=== PATIENT | male | born 1970 | race Two or more races ===

== ENCOUNTER 2023-09-09 03:00 | Emergency (ER) | payer OTHER, SELFPAY ==
[2023-09-09 03:13] VITALS: BP 131/84; PULSE 63; RESP 16; TEMP 36.3; O2SAT 97; BMI 26.6
--- NOTE | 2023-09-09 03:41 | ED.GENADULT ---
HPI - General Adult General Chief complaint: Anxiety Stated complaint: sore throat Time Seen by Provider: 09/09/23 03:17 History of Present Illness HPI narrative: patient reports hx of anxiety when sleeping veronica felt that his throat was closing/ difficult to breath while lying in bed. felt very anxious due. has had a sore throat since yesterday morning. denies sick contacts. feels very anxious also reports chest pain in L side, does not radiate. denies nausea or other symptoms. patient has a difficult time verbalizing exact complaint but states he feels very anxious, like something is very wrong. 53-year-old man presenting to the emergency department with concern of tight throat. Veronica especially felt like his throat was closing up he was trying to go to sleep. I finally ask what his primary concern is and it sounds like he is worried about having a heart attack. Is describing prickling sensation at the left chest. I tried to clarify what sounds to be a case of mild laryngitis. He says he sounded like this since he got COVID but later states that this is new. Takes gabapentin with whatever meal he eats 100 mg sounds like up to 3 doses per day. This is for anxiety he says. Does not think it is COVID. Related Data Home Medications Medication Instructions Recorded Confirmed gabapentin 100 mg capsule 100 mg PO 3XD 09/09/23 09/09/23 Previous Rx's Medication Instructions Recorded lorazepam 1 mg tablet 0.5 - 1 mg (0.5 - 1 x 1 mg) PO BID 09/09/23 PRN anxiety #6 tabs prednisone 20 mg tablet 40 mg (2 x 20 mg) PO DAILY 5 days 09/09/23 #10 tabs Allergies Allergy/AdvReac Type Severity Reaction Status Date / Time No Known Drug Allergies Allergy Verified 09/09/23 03:27 Review of Systems Status of ROS: Reports: 6 or more systems reviewed and unremarkable except as noted in History and below PFSH PFSH Social History Smoking Status: Never smoker Do you use any of these nicotine containing products: None Second hand tobacco smoke exposure: No Non-prescribed substance use: denies use service: No Exam Narrative: Exam Narrative: Very pleasant. NAD other than demonstrating some degree of anxiety. Regularly rubbing/worrying left chest. Breathing easily. Oropharynx is a little sticky but otherwise unremarkable; faintly erythematous perhaps in the far posterior oropharynx. Sounds a little laryngitic. No asymmetry. Trachea midline. No supraclavicular crepitus. Extremities are well perfused without edema. Const: Vital Signs, click to edit/add: Vital Signs - 24 hr 09/09/23 03:13 Temperature 97.3 F L Pulse Rate [Left P ulse Oximeter] 63 Respiratory Rate 16 Blood Pressure [Le ft Upper Arm] 131/84 Pulse Oximetry 97 Oxygen Delivery Me thod Room Air Documenting provider has reviewed patient's vital signs: yes Course Vital Signs Vital signs: Initial Vital Signs Temperature 97.3 F L 09/09/23 03:13 Temperature Source Temporal Artery Scan 09/09/23 03:13 Pulse Rate 63 09/09/23 03:13 Respiratory Rate 16 09/09/23 03:13 Blood Pressure 131/84 09/09/23 03:13 Blood Pressure Mean 99 09/09/23 03:13 Blood Pressure Position Supine 09/09/23 03:13 Pulse Oximetry 97 09/09/23 03:13 Oxygen Delivery Method Room Air 09/09/23 03:13 Vital Signs Temperature 97.3 F L 09/09/23 03:13 Pulse Rate 63 09/09/23 03:13 Respiratory Rate 16 09/09/23 03:13 Blood Pressure 131/84 09/09/23 03:13 Pulse Oximetry 97 09/09/23 03:13 Oxygen Delivery Method Room Air 09/09/23 03:13 Temperature 97.3 F L 09/09/23 03:13 Pulse Rate 63 09/09/23 03:13 Respiratory Rate 16 09/09/23 03:13 Blood Pressure 131/84 09/09/23 03:13 Pulse Oximetry 97 09/09/23 03:13 Oxygen Delivery Method Room Air 09/09/23 03:13 Medical Decision Making MDM Narrative Medical decision making narrative: Had a 20 second run of sinus tachycardia. Approximately 114 beats per minute. Did not report to be symptomatic at that time but did say that he continued to feel a prickling sensation in his left chest. As I am conversing with him there are no events on monitor. Differential would also include pulmonary embolus, chest wall pain, pneumothorax, tachy arrhythmia or ischemic cardiovascular event. May have experienced some laryngospasm but no evidence of that here beyond the mild laryngitis that remains. May be having some reflux. Reviewing again seems that primary concern is sore throat. Per his preference this is where we will focus analysis and check troponin. Labs are normal. No further events. See patient discharge plan Lab Data Lab results reviewed: Yes I reviewed the patient's lab results Labs: Lab Results 09/09/23 09/09/23 Range/Units 03:59 04:00 Group A Strep DNA NOT DETECTED (Not Detectd) POC Troponin I 0.00 L (0.01-0.04) ng/ml ECG Data Attestation: I personally reviewed and interpreted this ECG as follows: (Sinus bradycardia with out ischemic changes otherwise. Rate of 59) Discharge Plan Discharge Clinical Impression: Laryngitis, Anxiety attack Patient Disposition: Home, Self-Care Condition: Improved Additional Instructions: You sound to have laryngitis. This may have been brought on by infection or maybe even reflux. I do think all your symptoms tonight were exacerbated by anxiety. You do not have evidence of a heart attack or a heart rhythm problem. I am sending in a course of prednisone for your voice. You might take famotidine once or twice a day for the next 2 weeks as well. I would also follow-up with your primary care provider to discuss further your anxiety treatment. As discussed will provide a temporary prescription of lorazepam. Parece que tiene laringitis. [place] puede vladimir sido provocado por nikita infecci?n o ashok vez incluso por reflujo. Creo que todos tus s?ntomas de esta noche fueron exacerbados por la ansiedad. No tiene evidencia de un ataque card?aco o un problema del ritmo card?aco. Te env?o un curso de prednisona para tu voz. Tambi?n puede aleta famotidina nikita o dos veces al d?a moose las pr?ximas 2 semanas. Tambi?n elizabeth?a un seguimiento con okeefe proveedor de atenci?n primaria para discutir m?s a fondo okeefe tratamiento para la ansiedad. Beth se cantor comentado, se proporcionar? nikita prescripci?n temporal de lorazepam. Prescriptions: New prednisone 20 mg tablet 40 mg PO DAILY 5 Days Qty: 10 0RF lorazepam 1 mg tablet 0.5 - 1 mg PO BID PRN (Reason: anxiety) Qty: 6 0RF No Action gabapentin 100 mg capsule 100 mg PO 3XD Follow Up/Referrals: Provider,Not a Local [Primary Care Provider] - Stand Alone Forms: [employer] Info Instructions
[2023-09-09 04:44] LABS: Strep A DNA Probe* NOT DETECTED (Not Detectd)
== END 2023-09-09 05:40 | disposition home or self-care (01) ==
PROVIDERS: Emergency Provider Family Medicine
DX: F41.0 Panic disorder [episodic paroxysmal anxiety] (principal); J04.0 Acute laryngitis
CPT/HCPCS: 84484; 87651; 93005; 95992; 99284